=== PATIENT | male | born 1980 | race Two or more races ===

== ENCOUNTER 2018-02-06 02:26 | Inpatient (IN) | payer SELFPAY ==
[~2018-02-06] VITALS: Ht 162.6 cm; Wt 59.1 kg
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
--- NOTE | ~2018-02-06 | MORECARE ---
CASE MANAGEMENT DISCHARGE SUMMARY PATIENT: SUNSHINE LANDRY UNIT: [id number] ADM DATE: 02/06/18 AGE: 37 : [birth year] SEX: M ROOM/BED: D.2235 AUTHOR: JLDOC PHYSICIAN: REFERRING PHYSICIAN: BRITTANEY GARLAND DO DATE OF SERVICE: 02/07/18 Discharge Plan Patient Name: SUNSHINE LANDRY Facility: [facility]:[place] : 1980 Planned Disposition: Home Anticipated Discharge Date: 02/07/18 Discharge Date: Expected LOS: 1 Initial Reviewer: [email or web address] Initial Review Date: 02/07/2018 Generated: 02/07/18 1:43 pm Comments DCP- Discharge Planning Updated by [email or web address]: Zoya Gomes on 02/07/18 11:[address] Patient Name: SUNSHINE LANDRY Admission Status: ER Accout number: [id number] Admission Date: 02-06-2018 : 1980 Admission Diagnosis: Attending: BRITTANEY GARLAND Current LOS: 1 Anticipated DC Date: 02-07-2018 Planned Disposition: Home Primary Insurance: UNINSURED DISCOUNT PLAN Discharge Planning Comments: CM met with patient to discuss discharge planning, he is alone in the room. States he has a friend that lives with him. States his friend will pick him up. States he does not have any DME. I informed him he can purchase crutches at [employer] for 49.99 or go to the [facility] on [address] to buy used crutches. He states he will inform his friend to purchase crutches for him. Denies needs at this time. He will discharge home today. CM will continue to follow and assist with discharge planning/needs. Feed Management Advisor: Zoya Gomes DCPIA - Discharge Planning Initial Assessment Updated by [email or web address]: Zoya Gomes on 02/07/18 12:36 pm * Is the patient Alert and Oriented? Yes * PCP No PCP * Pharmacy None * Preadmission Environment Home with Family * ADLs Independent * Equipment None * Verbal permission to speak to the caregivers and representatives has been obtained from the patient. N/A * Community resources currently utilized None * Additional services required to return to the preadmission environment? Yes * Can the patient safely return to the preadmission environment? Yes * Has this patient been hospitalized within the prior 30 days at any hospital? No Last DP export: 02/07/18 11:36 a Patient Name: SUNSHINE LANDRY Page [id number] at 1243 All edits/amendments must be made on the electronic document DICTATION DATE: 02/07/181241 EDITOR FARM JOURNAL: GERI 02/07/18 1242 RPT#: [id number] DC DATE: STATUS: ADM IN [facility] [address] [place] [address] END OF REPORT
--- NOTE | ~2018-02-06 | MORECARE ---
CASE MANAGEMENT DISCHARGE SUMMARY PATIENT: SUNSHINE LANDRY UNIT: [id number] ADM DATE: 02/06/18 AGE: 37 : [birth year] SEX: M ROOM/BED: D.2235 AUTHOR: GAVINO PARIKH PHYSICIAN: REFERRING PHYSICIAN: BRITTANEY GARLAND DO DATE OF SERVICE: 02/07/18 Discharge Plan Patient Name: SUNSHINE LANDRY Facility: [facility]:[place] : 1980 Planned Disposition: Home Anticipated Discharge Date: 02/07/18 Discharge Date: Expected LOS: 1 Initial Reviewer: [email or web address] Initial Review Date: 02/07/2018 Generated: 02/07/18 1:36 pm Patient Name: SUNSHINE LANDRY Page [phone] at 1236 All edits/amendments must be made on the electronic document DICTATION DATE: 02/07/18 1235 MEMS DEVICE SCIENTIST: GERI 02/07/18 1235 RPT#: [id number] DC DATE: STATUS: ADM IN [facility] [address] [place] [address] END OF REPORT
--- NOTE | ~2018-02-06 | MORECARE ---
CASE MANAGEMENT DISCHARGE SUMMARY PATIENT: SUNSHINE LANDRY UNIT: [id number] ADM DATE: 02/06/18 AGE: 37 : [birth year] SEX: M ROOM/BED: D.2235 AUTHOR: GAVINO PARIKH PHYSICIAN: REFERRING PHYSICIAN: BRITTANEY GARLAND DO DATE OF SERVICE: 02/08/18 Discharge Plan Patient Name: SUNSHINE LANDRY Facility: [facility]:[place] : 1980 Planned Disposition: Home Anticipated Discharge Date: 02/07/18 Discharge Date: 02/07/2018 Expected LOS: 1 Initial Reviewer: [email or web address] Initial Review Date: 02/07/2018 Generated: 02/08/18 10:50 am DCP- Discharge Planning Updated by [email or web address]: Zoya Gomes on 02/07/18 11:[address] Patient Name: SUNSHINE LANDRY Admission Status: ER Accout number: [id number] Admission Date: 02-06-2018 : 1980 Admission Diagnosis: Attending: BRITTANEY GARLAND Current LOS: 1 Anticipated DC Date: 02-07-2018 Planned Disposition: Home Primary Insurance: UNINSURED DISCOUNT PLAN Discharge Planning Comments: CM met with patient to discuss discharge planning, he is alone in the room. States he has a friend that lives with him. States his friend will pick him up. States he does not have any DME. I informed him he can purchase crutches at [employer] for 49.99 or go to the [facility] on [address] to buy used crutches. He states he will inform his friend to purchase crutches for him. Denies needs at this time. He will discharge home today. CM will continue to follow and assist with discharge planning/needs. Corporate Associate: Zoya Gomes DCPIA - Discharge Planning Initial Assessment Updated by [email or web address]: Zoya Gomes on 02/07/18 12:36 pm * Is the patient Alert and Oriented? Yes * PCP No PCP * Pharmacy None * Preadmission Environment Home with Family * ADLs Independent * Equipment None * Verbal permission to speak to the caregivers and representatives has been obtained from the patient. N/A * Community resources currently utilized None * Additional services required to return to the preadmission environment? Yes * Can the patient safely return to the preadmission environment? Yes * Has this patient been hospitalized within the prior 30 days at any hospital? No Last DP export: 02/07/18 11:43 a Patient Name: SUNSHINE LANDRY Page [phone] at 0950 All edits/amendments must be made on the electronic document DICTATION DATE: 02/08/18949 BLOOD TESTER: GERI 02/08/18949 RPT#: [id number] DC DATE:02/07/18 STATUS: DIS IN [facility] [address] [place] [address] END OF REPORT
[2018-02-06 02:36] VITALS: Ht 162.6 cm; Wt 59.1 kg
[2018-02-06 04:43] LABS: APTT 23.8 SECONDS (22.8-39.4); INR 1.02 (0.85-1.17); PROTIME 12.9 SECONDS (11.6-15.0)
[2018-02-06 04:46] LABS: BASOPHILS 0.4 % (0-2); EOSINOPHILS 0.1 % (0-7); HEMATOCRIT 44.4 % (42.0-54.0); HEMOGLOBIN 15.8 g/dL (13.5-17.5); IMMATURE GRANULOCYTES 0.4 % (0-5); LYMPHOCYTES 17.9 % (15-50); MCH 33.8 pg (26.0-34.0); MCHC 35.6 g/dL (31.0-37.0); MCV 94.9 fL (80.0-100.0); MEAN PLATELET VOLUME 9.9 fL (7.4-10.4); MONOCYTES 4.1 % (2-11); NEUTROPHILS 77.1 % (40-80); PLATELET COUNT 215 10x3/uL (130-400); RBC 4.68 10x6/uL (4.20-6.10); RDW 12.8 % (11.5-14.5); WBC 8.3 10x3/uL (4.8-10.8)
[2018-02-06 04:51] LABS: ALBUMIN 4.6 g/dL (3.4-5.0); ALKALINE PHOSPHATASE 70 U/L (46-116); ALT (SGPT) 51 U/L (10-68); BILIRUBIN - TOTAL 0.48 mg/dL (0.2-1.3); CALC OSMOLALITY 272 mosm/kg (275-300); CALCIUM 8.9 mg/dL (8.5-10.1); CARBON DIOXIDE 20.8 mmol/L (21.0-32.0); CHLORIDE - SERUM 98 mmol/L (98-107); CREATININE - SERUM 0.6 mg/dL (0.6-1.3); GLUCOSE 119 mg/dL (74-106); POTASSIUM - SERUM 3.8 mmol/L (3.5-5.1); PROTEIN - SERUM 8.2 g/dL (6.4-8.2); SODIUM 136 mmol/L (136-145); UREA NITROGEN 12 mg/dL (7-18); eGFR NON AFRICAN AMERICAN > 90 mL/min (90-120)
[2018-02-06 08:43] VITALS: BP 103/50
[2018-02-06 12:38] VITALS: BP 100/65
[2018-02-06 15:27] VITALS: BP 130/79
[2018-02-06 16:50] VITALS: BP 120/78
[2018-02-06 20:24] VITALS: BP 104/62
[2018-02-06 20:47] VITALS: BP 104/62
[2018-02-07 01:01] VITALS: BP 124/64
[2018-02-07 05:01] VITALS: BP 112/70
[2018-02-07 05:22] LABS: BASOPHILS 0 % (0-2); EOSINOPHILS 0 % (0-7); HEMATOCRIT 39.1 % (42.0-54.0); HEMOGLOBIN 13.7 g/dL (13.5-17.5); IMMATURE GRANULOCYTES 0.2 % (0-5); LYMPHOCYTES 8.2 % (15-50); MCH 33.7 pg (26.0-34.0); MCV 96.1 fL (80.0-100.0); MEAN PLATELET VOLUME 9.7 fL (7.4-10.4); MONOCYTES 4.1 % (2-11); NEUTROPHILS 87.5 % (40-80); PLATELET COUNT 212 10x3/uL (130-400); RBC 4.07 10x6/uL (4.20-6.10); RDW 12.8 % (11.5-14.5); WBC 9.8 10x3/uL (4.8-10.8)
[2018-02-07 05:36] LABS: CALC OSMOLALITY 278 mosm/kg (275-300); CALCIUM 8.5 mg/dL (8.5-10.1); CARBON DIOXIDE 25.2 mmol/L (21.0-32.0); CHLORIDE - SERUM 104 mmol/L (98-107); CREATININE - SERUM 0.9 mg/dL (0.6-1.3); GLUCOSE 125 mg/dL (74-106); POTASSIUM - SERUM 3.8 mmol/L (3.5-5.1); SODIUM 140 mmol/L (136-145); UREA NITROGEN 9 mg/dL (7-18); eGFR NON AFRICAN AMERICAN > 90 mL/min (90-120)
[2018-02-07 08:26] VITALS: BP 124/64
[2018-02-07] MEDS ORDERED: OXYCODONE HCL5 M1 PO (12:16)
[2018-02-07 12:17] VITALS: BP 147/60
[2018-02-07] MEDS ORDERED: KEFLEX500 MG PO (12:17)
[2018-02-07] MEDS ORDERED: BAYER CHEWABLE81 MG PO (12:50)
== END 2018-02-07 15:55 | disposition home or self-care (01) | DRG 494 ==
LOC: D.ER 02:26 → D.MS 05:57
PROVIDERS: Family Medicine; Orthopaedic Surgery
PROC: 0QSG04Z Reposition Right Tibia with Internal Fixation Device, Open Approach (ICD-10-PCS; 2018-02-06)
PROC: 0QSJ04Z Reposition Right Fibula with Internal Fixation Device, Open Approach (ICD-10-PCS; principal; 2018-02-06 12:00)
DX: S82.841A Displaced bimalleolar fracture of right lower leg, initial encounter for closed fracture (principal); Y09 Assault by unspecified means

== ENCOUNTER 2018-11-14 13:55 | Emergency (ER) | payer SELFPAY ==
[~2018-11-14] VITALS: Ht 162.6 cm; Wt 63.6 kg
[~2018-11-14 13:55] MED LIST: BAYER CHEWABLE81 MG PO; KEFLEX500 MG PO; OXYCODONE HCL5 M1 PO
[2018-11-14 14:01] VITALS: Ht 162.6 cm; Wt 63.6 kg
[2018-11-14] MEDS ORDERED: PHENERGAN25 M1 PO (17:51)
[2018-11-14] MEDS ORDERED: FLAGYL500 MG PO (17:51)
[2018-11-14 18:13] VITALS: BP 117/73
== END 2018-11-14 18:18 | disposition home or self-care (01) ==
LOC: D.ER 13:55
DX: K52.9 Noninfective gastroenteritis and colitis, unspecified (principal); R16.0 Hepatomegaly, not elsewhere classified